=== PATIENT | female | born 1945 | race Caucasian/White ===

== ENCOUNTER → 2016-12-17 | Day surgery (SDC) | payer OTHER ==
[~2016-12-17] MED LIST: ACETAMINOPHEN PO; ADVAIR 250-501 EACH IH; ALBUTEROL MININEB NEB; ANEXSIA 7.5/3251 TA1 PO; ATIVAN PO; ATIVAN2 M1 PO; ATIVAN2 MG PO; B-12 IJ; BACLOFEN10 MG PO; BACLOFEN20 MG PO; CHANTIX; CIPRO PO; COMBIVENT U/D3 ML INH; COPAXONE SQ; FLUCONAZOLE200 MG PO; HORIZANT600 MG PO; LEVAQUIN PO; LIORESAL10 MG PO; LODIPINE PO; LOMOTIL TABLET1 TAB PO; MULTI COMPLETE1 EACH PO; MULTI VITAMIN1 EACH PO; MYSOLINE50 M2 PO; MYSOLINE50 MG PO; NEURONTIN300 MG PO; NEURONTIN600 MG PO; NICOTINE TOP; NYSTATIN5 ML PO; OMNICEF300 M1 PO; PHENERGAN PO; PREDNISONE; PREDNISONE PO; PRILOSEC PO; PRILOSEC20 M1 PO; SIMVASTATIN20 MG PO; SINGULAIR PO; THERAPEUTIC M PO; TYSABRI; TYSABRI IV; ULTRAM PO; VICODIN 5/500 T1 TAB PO; VITAMIN B12 IM; VITAMIN D1000 UNI1 PO; VITAMIN D1000 UNIT PO; VITAMIN D250000 UNIT PO; ZOCOR PO
--- NOTE | ~2016-12-17 | OR ---
Unit #: [id number] #: [id number] Patient: ALBA DERAS [id number] [address] [address] [id number] MR#: [id number] NAME: ALBA DERAS. ROOM: Date of Procedure: 12/17/2016 Admission Date: 12/17/2016 Surgeon: Masoud Montgomery M.D. : 1945 Attending Physician: Masoud Montgomery M.D. Primary Care Physician: Edelmira Merrill M.D. OPERATIVE REPORT JOB NOTE: CC: [facility] PREOPERATIVE DIAGNOSES 1. Back pain. 2. Radiculopathy. 3. Degenerative lumbar disk disease with myelopathy. POSTOPERATIVE DIAGNOSES 1. Back pain. 2. Radiculopathy. 3. Degenerative lumbar disk disease with myelopathy. PROCEDURE PERFORMED Lumbar epidural steroid injection with intravenous sedation and fluoroscopic guidance for needle localization. INDICATIONS FOR PROCEDURE The patient is a 71-year-old female with return of back and bilateral lower extremity pains due to multilevel multifactorial nonsurgical degenerative disk and spine disease. Last injection was done singly in early May. She had resurgence of the pain in about 4 months. Based on history, pathology, and symptomatology, plan is to repeat an epidural steroid injection today. DESCRIPTION OF PROCEDURE The patient was placed in a seated position. Standard monitors were applied. 4 mg of Versed were given for sedation and anxiolysis, which were adequate. Vital signs remained stable. Sterile prep and drape then of the lumbar area was performed. The skin then at the L4-L5 level was localized with 1% lidocaine. After confirming proper positioning with fluoroscopy and radiographic contrast, 80 mg Depo-Medrol and 4 mL of 0.125% bupivacaine were deposited. The patient tolerated the procedure otherwise well and was discharged to recovery room in stable condition. Dictated by... Masoud Montgomery M.D. LHP/burtl TD: 12/18/2016 01:01 JOB #: [id number] Unit #: [id number] #: [id number] Patient: ALBA DERAS OPERATIVE REPORT X Masoud Montgomery MD X PROCEDURE OPERATIVE NOTE
== END | disposition home or self-care (01) ==
LOC: CCSC 09:38
DX: M51.06 Intervertebral disc disorders with myelopathy, lumbar region (principal); M51.16 Intervertebral disc disorders with radiculopathy, lumbar region; K21.9 Gastro-esophageal reflux disease without esophagitis
CPT/HCPCS: J1040; J2250

== ENCOUNTER → 2017-02-10 | Outpatient (CLI) | payer OTHER ==
--- NOTE | ~2017-02-10 | MY11 ---
[facility] A Service of [facility] RADIOLOGY TEXT RESULTS PATIENT: ALBA DERAS LOCATION: [facility] : [birth year] UNIT #: [id number] AGE: [address]: Edelmira Merrill MD SEX: F ORDER DR: [id number] [facility] [address] [facility] [place] [facility]. [place], [place] [address] [id number] O MR#: [id number] Acc #: [id number] NAME: ALBA DERAS : 1945 SEX: F STUDY DATE/TIME: 02/10/2017 11:01 UNIT: [facility] ROOM: STUDY DESCRIPTION: MY Mammogram Screening Dig Ryan Attending Physician: Edelmira Merrill M.D. Referring Physician: Edelmira Merrill M.D. Ordering Physician: Edelmira Merrill M.D. Primary Care Physician: Edelmira Merrill M.D. MEDICAL IMAGING REPORT This report is preliminary unless electronic signature is present EXAM Bilateral digital screening mammogram with CAD 02/10/2017 INDICATIONS 71-year-old female for routine screening. No reported problems and no personal history of breast cancer. Family history positive in a half-sister. History of cyst removal. TECHNIQUE CC and MLO views of the breasts were obtained and reviewed with an approved CAD device. COMPARISON 02/07/2016, 12/27/2014, 12/20/2013. FINDINGS Breast parenchyma is composed of scattered fibroglandular densities. The pattern is unchanged. There is no new dominant nodule, mass, or suspicious cluster of microcalcifications. Probable intramammary node in the upper outer quadrant left breast unchanged. IMPRESSION Benign screening mammogram; 1-year followup recommended. Patients over the age of 40 are entered into a reminder system with target due date for the next mammogram. A result letter will also be sent to the patient. BIRADS: 2 Benign finding. Dictated by... Martin Brunner M.D. [facility] A Service of [facility] RADIOLOGY TEXT RESULTS PATIENT: ALBA DERAS LOCATION: [facility] : 47 UNIT #: [id number] AGE: [address]: Edelmira Merrill MD SEX: F ORDER DR: THIS IS AN ELECTRONICALLY VERIFIED REPORT Martin Brunner M.D. at 02/10/2017 4:59 PM Robyn TD: 02/10/2017 12:09 JOB #: [id number] MEDICAL IMAGING REPORT Page 1 of 1 COPY
== END | disposition home or self-care (01) ==
LOC: CWCC 10:22
DX: Z12.31 Encounter for screening mammogram for malignant neoplasm of breast (principal); Z80.3 Family history of malignant neoplasm of breast
CPT/HCPCS: G0202

== ENCOUNTER 2017-06-24 17:22 | Inpatient (IN) | payer OTHER ==
[~2017-06-24] VITALS: Ht 162.6 cm; Wt 108.9 kg
--- NOTE | ~2017-06-24 | DS ---
Unit #: [id number] #: [id number] Patient: ALBA DERAS [id number] [address] [place], [place] [address] [id number] I MR#: [id number] NAME: ALBA DERAS. ROOM: 217 Age: 71 Sex: F Admission Date: 06/24/2017 : 1945 Discharge Date: 06/30/2017 Attending Physician: Vick Carr Primary Care Physician: Edelmira Merrill M.D. DISCHARGE SUMMARY HISTORY OF PRESENT ILLNESS A 71-year-old lady with multiple sclerosis, coronary artery disease as well as the patient is having shortness of air for approximately 2 days. The patient had progressive worsening, therefore she was admitted to the hospital. No change to her medications. No sick contacts. No improvement with steroids and antibiotics as outpatient. The patient is having cough that was clear, placed on Rocephin and oral steroids and was admitted. The patient had progressive dyspnea, required persistent steroid intake. The patient had no significant improvement for several days; however, over time, the shortness of breath improved gradually. The patient continues to take her normal steroids. The patient had worked with physical therapy, who said the patient was fine and did not require home PT. The patient however did improve with incentive spirometry. Prednisone was changed to oral. She did not require home oxygen. Discharged on 06/30/2017 without much difficulty. DISCHARGE MEDICATIONS Include albuterol neb q.i.d. as needed; prednisone 60 mg x1 day, 50 mg x1 day, 40 mg x1 day, 30 mg x1 day, 20 mg x1 day, 10 mg x1 day; primidone 50 mg a day; Lomotil 2.5 mg as needed for loose stool; Diflucan 200 mg p.o. at bedtime for two days; lorazepam 200 mg p.o. t.i.d. as needed for anxiety; simvastatin 20 mg daily; natalizumab infusion every four weeks; montelukast 10 mg a day; multivitamin one tablet a day; hydrocodone and acetaminophen one tablet p.o. t.i.d. as needed for pain; omeprazole 20 mg daily; baclofen 30 mg tablets p.o. t.i.d.; ergocalciferol 50,000 units daily; vitamin B12 daily; 50,000 units of vitamin D q.week; Omnicef 300 mg p.o. b.i.d.; nicotine patch 21 mg transdermally daily x21 days. DISCHARGE INSTRUCTIONS The patient is to follow up with Ms. Beyer in the office in 2 weeks. The patient is to take regular diet and ambulate as tolerated. DISCHARGE DIAGNOSES 1. Multiple sclerosis. 2. Chronic obstructive pulmonary disease exacerbation. 3. Acute on chronic respiratory failure. Thank you very much. Please page me at [phone] if you have any questions. Dictated by... Truong Carr M.D. Unit #: [id number] #: [id number] Patient: ALBA DERAS/modl TD: 07/02/2017 14:19 JOB #: [id number] DISCHARGE SUMMARY Page 1 of 1 X Vick Carr MD X DISCHARGE SUMMARY
--- NOTE | ~2017-06-24 | CR72 ---
[facility] A Service of [facility] RADIOLOGY TEXT RESULTS PATIENT: ALBA DERAS LOCATION: [facility] : 47 UNIT #: [id number] AGE: [address]: Vick Carr MD SEX: F ORDER DR: [id number] [facility] [address] [facility]. [place], [place] [address] [id number] I MR#: [id number] Acc #: [id number] NAME: ALBA DERAS : 1945 SEX: F STUDY DATE/TIME: 06/25/2017 5:40 UNIT: [facility] ROOM: [facility] STUDY DESCRIPTION: CR Chest Single View Portable Attending Physician: Truong Carr M.D. Ordering Physician: Truong Carr M.D. Primary Care Physician: Edelmira Merrill M.D. MEDICAL IMAGING REPORT This report is preliminary unless electronic signature is present EXAM Single view of the chest dated 06/25/2017 COMPARISON Single view chest dated 06/24/2017. HISTORY Shortness of air, COPD for the last 2 days. FINDINGS Single view of the chest was obtained. Stable cardiomegaly and evidence of old granulomatous disease. Calcified hilar, mediastinal lymph nodes and lung nodules are noted. No superimposed acute cardiopulmonary disease. IMPRESSION 1. No significant interval change. 2. Stable [id number] cardiomegaly/pericardial effusion. 3. Old granulomatous disease. Dictated by... Mery Seals M.D. THIS IS AN ELECTRONICALLY VERIFIED REPORT Mery Seals M.D. at 06/26/2017 2:45 PM CPR/mjs TD: 06/25/2017 12:51 JOB #: [id number] MEDICAL IMAGING REPORT [facility] A Service of [facility] RADIOLOGY TEXT RESULTS PATIENT: ALBA DERAS LOCATION: [facility] : [birth year] UNIT #: [id number] AGE: [address]: Vick Carr MD SEX: F ORDER DR: Page 1 of 1 COPY
--- NOTE | ~2017-06-24 | HP ---
Unit #: [id number] #: [id number] Patient: ALBA DERAS [id number] [address] [place], [place] [address] [id number] I MR#: [id number] NAME: ALBA DERAS. ROOM: 217 Age: 71 Sex: F Admission Date: 06/24/2017 : 1945 Attending Physician: Truong Carr M.D. Primary Care Physician: Edelmira Merrill M.D. HISTORY AND PHYSICAL HISTORY OF PRESENT ILLNESS A 71-year-old lady with a history of MS, coronary artery disease, and asthma. The patient has been having shortness of air for approximately two days. Has a history of progressive shortness of air. This morning patient had no (1) change to, no sick contacts, no improvement with steroids and antibiotics as an outpatient, so patient presented to the emergency room. Patient is having positive clear cough. She was placed on Rocephin and clear steroids, and she is being observed for any sort of deterioration. PAST MEDICAL HISTORY 1. Multiple sclerosis. 2. Coronary artery disease. 3. ND. 4. Hypertension. 5. Hyperlipidemia. 6. Pulmonary embolism. 7. Insomnia. 8. Irritable bowel disease. 9. Left breast biopsy with breast cysts. 10. Right thumb surgery. 11. Degenerative disc disease of the C-spine. 12. Right knee surgery. 13. Carpal tunnel syndrome release. 14. Left thumb tendon release. 15. Collar bone surgery. 16. Anemia of chronic disease. 17. Total abdominal hysterectomy. 18. Cholecystectomy. ALLERGIES Aspirin, penicillin, codeine, Talwin, Terramycin, and Darvon. MEDICATIONS 1. Baclofen 1.5 tablet 3 times daily. 2. Ativan 2 mg p.o. 3 times daily. 3. Simvastatin 20 mg at bedtime. 4. Tysabri (natalizumab) 1 IV every 4 weeks for multiple sclerosis. 5. Mysoline 50 mg at bedtime. 6. Vitamin B12 IV every month. 7. Vitamin D2 at 50,000 units weekly. 8. Lomotil 2.5 mg p.r.n. 9. Multivitamin daily. 10. Prilosec 20 mg daily. Unit #: [id number] #: [id number] Patient: ALBA DERAS 11. Anexsia (hydrocodone and acetaminophen) 7.5/325 tablet every 6 hours as needed. 12. Singulair 10 mg daily. FAMILY HISTORY Mother had COPD. Father had Alzheimer disease. SOCIAL HISTORY Patient is , retired. Smoked 40 plus pack-years half pack per day. No history of alcohol. No history of polysubstance use. No other occupational exposure. REVIEW OF SYSTEMS Negative except as per the History of Present Illness. Patient (2) developing progressive shortness of air. A 12-point review of systems was negative otherwise except as in the History of Present Illness. PHYSICAL EXAMINATION VITAL SIGNS: T-current 98.6, pulse 59, respiratory rate 21, blood pressure 121/41, 95% on 2 liters nasal cannula. CHEST: Decreased breath sounds bilaterally. CARDIOVASCULAR: Regular rate. No gallop. ABDOMEN: Soft, nontender, nondistended. EXTREMITIES: No evidence of edema. ASSESSMENT AND PLAN 1. Chronic obstructive pulmonary disease exacerbation. We are going to continue steroids. 2. Acute on chronic respiratory failure. We are going to continue treatment. 3. Multiple sclerosis. We are going to continue home medications. 4. Irritable bowel disease and degenerative joint disease. Will be observed closely. 1. Dictated by Costa Eid/willie TD: 06/26/2017 22:05 JOB #: [id number] HISTORY AND PHYSICAL Page 1 of 1 X Vick Carr MD X HISTORY AND PHYSICAL
--- NOTE | ~2017-06-24 | EKG ---
PATIENT: ALBA DERAS UNIT #: [id number] Ventricular Rate: 62 BPM Atrial Rate: 62 BPM P-R Interval: 98 ms QRS Duration: 126 ms Q-T Interval: 454 ms QTC Calculation(Bezet): 460 ms P [place]: 63 degrees Calculated R [place]: 82 degrees Calculated T [place]: 0 degrees Diagnosis Line: Sinus rhythm with short FL Diagnosis Line: Right bundle branch block with repolarization Diagnosis Line: abnormality Diagnosis Line: T wave abnormality, consider inferior ischemia Diagnosis Line: Abnormal ECG Diagnosis Line: When compared with ECG of 10-SEP-2014 16:28, Diagnosis Line: Aberrant conduction is no longer Present Diagnosis Line: Non-specific change in ST segment in Inferior Diagnosis Line: leads Diagnosis Line: ST no longer depressed in Anterior leads Diagnosis Line: Inverted T waves have replaced nonspecific T wave Diagnosis Line: abnormality in Anterior leads Diagnosis Line: Confirmed by DYLAN DILLON MD ([id number]) on 06/25/2017 Diagnosis Line: 7:36:46 PM INTERPRETING MD: SANTANA TAN
--- NOTE | ~2017-06-24 | CR72 ---
[facility] A Service of [facility] RADIOLOGY TEXT RESULTS PATIENT: ALBA DERAS LOCATION: [facility] : 47 UNIT #: [id number] AGE: [address]: Vick Carr MD SEX: F ORDER DR: [id number] [facility] [address] [facility] [place], [place] [address] [id number] I MR#: [id number] Acc #: [id number] NAME: ALBA DERAS : 1945 SEX: F STUDY DATE/TIME: 06/27/2017 5:53 UNIT: [facility] ROOM: [facility] STUDY DESCRIPTION: CR Chest Single View Portable Attending Physician: Truong Carr M.D. Ordering Physician: Truong Carr M.D. Primary Care Physician: Edelmira Merrill M.D. MEDICAL IMAGING REPORT This report is preliminary unless electronic signature is present EXAM Portable chest 06/27 INDICATION Shortness of air, COPD. Symptoms for 3 days. COMPARISON 06/25/2017. FINDINGS A portable view of the chest was obtained. The heart is mildly enlarged. The vascularity is normal. There are calcified granulomas in the right lung. The lungs are clear. IMPRESSION Stable cardiomegaly. No active disease. Dictated by... Wesley Madrigal M.D. THIS IS AN ELECTRONICALLY VERIFIED REPORT Wesley Madrigal M.D. at 06/27/2017 1:48 PM CORA/alfreda TD: 06/27/2017 10:42 JOB #: [id number] MEDICAL IMAGING REPORT Page 1 of 1 COPY
--- NOTE | ~2017-06-24 | BMI ---
[facility] Nutrition Therapy DATE: 06/25/17 Patient: ALBA Price BRAEDEN Physician: IDALMIS Address: [address] [place] [address] ROAD Room/Bed: [address] [place] [address], Zip: [place] [address] Admit Date: 06/24/17 Date of : [birth year] Height: 5 4 Weight: 240 108.86 HIGH BMI NOTE: DX: 71 y/o female admitted with COPD exacerbation ANTHROPOMETRICS: Ht: 64", Wt: 108.9 kg, BMI: 41 (stage III obese) DIET: Regular INTERVENTION: Restricted diet, meds/fluids per MD RECOMMENDATIONS: Consider changing diet to healthy heart due to PMH to promote a gradual weight loss towards a healthy BMI range. Respectfully, Francheska Walsh RD, LD Food and Nutritional Services [facility] cc: client file
--- NOTE | ~2017-06-24 | CR72 ---
[facility] A Service of [facility] RADIOLOGY TEXT RESULTS PATIENT: ALBA DERAS LOCATION: [facility] 217-01 : 47 UNIT #: [id number] AGE: [address]: Vick Carr MD SEX: F ORDER DR: [id number] [facility] [address] [facility]. [place], [place] [address] [id number] I MR#: [id number] Acc #: [id number] NAME: ALBA DERAS : 1945 SEX: F STUDY DATE/TIME: 06/24/2017 18:03 UNIT: [facility] ROOM: [facility] STUDY DESCRIPTION: CR Chest Single View Portable Attending Physician: Truong Carr M.D. Ordering Physician: Briana Fontanez M.D. Primary Care Physician: Edelmira Merrill M.D. MEDICAL IMAGING REPORT This report is preliminary unless electronic signature is present EXAM Single view chest. INDICATIONS Shortness of air for 1 day. FINDINGS Single portable AP view of the chest compared to 09/10/2014. The heart is enlarged. Central pulmonary vasculature is within normal limits. No focal consolidation. No pneumothorax. IMPRESSION Stable cardiomegaly. No new findings. Dictated by... Mendoza Rogers M.D. THIS IS AN ELECTRONICALLY VERIFIED REPORT Mendoza Rogers M.D. at 06/26/2017 9:49 AM RPC/kellie TD: 06/25/2017 09:45 JOB #: [id number] MEDICAL IMAGING REPORT Page 1 of 1 COPY
[~2017-06-24 17:22] MED LIST changes: -CHANTIX; -FLUCONAZOLE200 MG PO; -NICOTINE TOP; -OMNICEF300 M1 PO; -PREDNISONE
[2017-06-24 17:56] LABS: POC - CKMB 1.9 ng/mL (0.0-7.9); POC - TROPONIN <0.05 ng/mL (<=0.05)
[2017-06-24 18:06] LABS: BASOPHIL# 0.1 X10e3 (0-0.3); BASOPHIL% 0.7 % (0-2.5); DIFF IND NO; EOSINOPHIL# 0.1 X10e3 (0-0.7); EOSINOPHIL% 0.7 % (0.0-7.0); HEMATOCRIT 39.1 % (35.0-45.0); HEMOGLOBIN 13.1 gm/dL (12.0-16.0); LYMPHOCYTE# 3.8 X10e3 (1.0-3.5); LYMPHOCYTE% 30.7 % (17.0-45.0); MEAN CELL VOLUME 93.6 FL (83-96); MEAN CORPUSCULAR HEMOGLOBIN 31.4 PG (28-34); MEAN CORPUSCULAR HGB CONC 33.6 g/dL (30-36); MEAN PLATELET VOLUME 10.6 FL (6.5-11.5); MONOCYTE# 1.5 X10e3 (0-1.0); MONOCYTE% 12.4 % (3.0-12.0); NEUTROPHIL# 6.8 X10e3 (1.5-7.1); NEUTROPHIL% 55.5 % (40-75); PLATELET COUNT 191 X10e3 (140-420); RED BLOOD COUNT 4.17 X10e (3.90-5.30); WHITE BLOOD COUNT 12.2 X10e3 (4.0-10.5)
[2017-06-24 18:17] LABS: INR 1.1; PARTIAL THROMBOPLASTIN TIME 26.8 SECONDS (23.5-31.3); PROTHROMBIN TIME (PATIENT) 11.4 SECONDS (10.0-11.7)
[2017-06-24 18:28] LABS: INFLUENZA A NEG (NEG); INFLUENZA B NEG (NEG)
[2017-06-24 18:28] LABS: ALBUMIN SERUM 3.7 g/dL (3.5-5.0); BILIRUBIN, DIRECT 0.2 mg/dL (0.0-0.2); BILIRUBIN,INDIRECT 0.8 mg/dL (0.0-0.9); BUN/CREATININE RATIO 12.5; CALCIUM SERUM 8.4 mg/dL (8.4-10.2); CREATININE SERUM 0.8 mg/dL (0.6-1.4); GLOM FILT RATE Estimated 75.3 mL/min (>60); POTASSIUM 3.9 mmol/L (3.5-5.1); PROTEIN TOTAL SERUM 7.1 g/dL (6.0-8.3)
[2017-06-24 19:44] LABS: POC - CKMB 1.2 ng/mL (0.0-7.9); POC - TROPONIN <0.05 ng/mL (<=0.05)
[2017-06-25 05:16] LABS: BASOPHIL% 0.8 % (0-2.5); HEMOGLOBIN 12.2 gm/dL (12.0-16.0); LYMPHOCYTE# 1.2 X10e3 (1.0-3.5); LYMPHOCYTE% 20.8 % (17.0-45.0); MEAN CELL VOLUME 93.1 FL (83-96); MEAN CORPUSCULAR HEMOGLOBIN 31.5 PG (28-34); MEAN CORPUSCULAR HGB CONC 33.9 g/dL (30-36); MONOCYTE# 0.2 X10e3 (0-1.0); MONOCYTE% 2.9 % (3.0-12.0); NEUTROPHIL# 4.3 X10e3 (1.5-7.1); NEUTROPHIL% 75.5 % (40-75); PLATELET COUNT 161 X10e3 (140-420); RED BLOOD COUNT 3.87 X10e (3.90-5.30); RED CELL DISTRIBUTION WIDTH 15.6 % (11.0-15.5)
[2017-06-25 05:45] LABS: DIFF IND NO; WHITE BLOOD COUNT 5.8 X10e3 (4.0-10.5)
[2017-06-25 05:54] LABS: ALBUMIN SERUM 3.2 g/dL (3.5-5.0); ALKALINE PHOSPHATASE 75 U/L (32-92); ALT (SGPT) 8 U/L (10-40); AST (SGOT) 13 U/L (10-42); BILIRUBIN, DIRECT 0.1 mg/dL (0.0-0.2); BILIRUBIN,INDIRECT 0.5 mg/dL (0.0-0.9); BILIRUBIN,TOTAL 0.6 mg/dL (0.2-2.0); BLOOD UREA NITROGEN 12 mg/dL (9-23); CALCIUM SERUM 8.3 mg/dL (8.4-10.2); CARBON DIOXIDE 27 mmol/L (22-31); CHLORIDE 102 mmol/L (100-111); CREATININE SERUM 0.6 mg/dL (0.6-1.4); GLUCOSE FASTING 155 mg/dL (70-110); PHOSPHOROUS 2.9 mg/dL (2.5-4.6); POTASSIUM 4.2 mmol/L (3.5-5.1); PROTEIN TOTAL SERUM 6.2 g/dL (6.0-8.3); SODIUM 137 mmol/L (135-145)
[2017-06-25 06:08] LABS: PROCALCITONIN <0.05 NG/ML
[2017-06-26 05:04] LABS: HEMATOCRIT 35.7 % (35.0-45.0); HEMOGLOBIN 11.9 gm/dL (12.0-16.0); MEAN CELL VOLUME 94.1 FL (83-96); MEAN CORPUSCULAR HEMOGLOBIN 31.4 PG (28-34); MEAN CORPUSCULAR HGB CONC 33.3 g/dL (30-36); MEAN PLATELET VOLUME 9.8 FL (6.5-11.5); RED BLOOD COUNT 3.79 X10e (3.90-5.30); RED CELL DISTRIBUTION WIDTH 15.7 % (11.0-15.5)
[2017-06-26 05:13] LABS: WHITE BLOOD COUNT 11.2 X10e3 (4.0-10.5)
[2017-06-26 06:35] LABS: BUN/CREATININE RATIO 24.28; CALCIUM SERUM 8.7 mg/dL (8.4-10.2); CREATININE SERUM 0.7 mg/dL (0.6-1.4); GLOM FILT RATE Estimated 88.4 mL/min (>60); POTASSIUM 4.2 mmol/L (3.5-5.1)
[2017-06-27 06:10] LABS: HEMATOCRIT 36.5 % (35.0-45.0); HEMOGLOBIN 11.8 gm/dL (12.0-16.0); MEAN CELL VOLUME 94.6 FL (83-96); MEAN CORPUSCULAR HEMOGLOBIN 30.6 PG (28-34); MEAN CORPUSCULAR HGB CONC 32.3 g/dL (30-36); MEAN PLATELET VOLUME 10.4 FL (6.5-11.5); RED BLOOD COUNT 3.86 X10e (3.90-5.30); RED CELL DISTRIBUTION WIDTH 16.1 % (11.0-15.5); WHITE BLOOD COUNT 12.6 X10e3 (4.0-10.5)
[2017-06-28 05:17] LABS: HEMATOCRIT 35.7 % (35.0-45.0); HEMOGLOBIN 11.9 gm/dL (12.0-16.0); LYMPHOCYTE# 1.5 X10e3 (1.0-3.5); LYMPHOCYTE% 13.9 % (17.0-45.0); MEAN CORPUSCULAR HEMOGLOBIN 31.4 PG (28-34); MEAN CORPUSCULAR HGB CONC 33.4 g/dL (30-36); MEAN PLATELET VOLUME 10.1 FL (6.5-11.5); MONOCYTE# 0.9 X10e3 (0-1.0); MONOCYTE% 8.9 % (3.0-12.0); NEUTROPHIL# 8.1 X10e3 (1.5-7.1); NEUTROPHIL% 77.2 % (40-75); PLATELET COUNT 190 X10e3 (140-420); RED CELL DISTRIBUTION WIDTH 16.1 % (11.0-15.5); WHITE BLOOD COUNT 10.5 X10e3 (4.0-10.5)
[2017-06-28 05:19] LABS: DIFF IND NO
[2017-06-30] MEDS ORDERED: CHANTIX (16:19)
[2017-06-30] MEDS ORDERED: ALBUTEROL MININEB NEB (16:20)
[2017-06-30] MEDS ORDERED: PREDNISONE (16:20)
[2017-06-30] MEDS ORDERED: OMNICEF300 M1 PO (16:21)
[2017-06-30] MEDS ORDERED: FLUCONAZOLE200 MG PO (16:21)
[2017-06-30] MEDS ORDERED: NICOTINE TOP (16:22)
== END 2017-06-30 18:12 | disposition home or self-care (01) | DRG 190 ==
LOC: CED 17:22 → CEDOF 20:34 → C2A 20:34 → CEDOF 20:38 → CED 20:38 → CEDOF 06-25 00:39 → C2A 06-25 00:39
PROVIDERS: Emergency Medicine; Internal Medicine Pulmonary Disease
PROC: 05H333Z Insertion of Infusion Device into Right Innominate Vein, Percutaneous Approach (ICD-10-PCS; principal; 2017-06-25)
PROC: B54MZZA Ultrasonography of Right Upper Extremity Veins, Guidance (ICD-10-PCS; 2017-06-25)
DX: J44.1 Chronic obstructive pulmonary disease with (acute) exacerbation (principal); J96.20 Acute and chronic respiratory failure, unspecified whether with hypoxia or hypercapnia; G35 Multiple sclerosis; Z68.41 Body mass index [BMI] 40.0-44.9, adult; E66.01 Morbid (severe) obesity due to excess calories; Z90.710 Acquired absence of both cervix and uterus; Z90.49 Acquired absence of other specified parts of digestive tract; I25.10 Atherosclerotic heart disease of native coronary artery without angina pectoris; J45.909 Unspecified asthma, uncomplicated; I25.2 Old myocardial infarction; I10 Essential (primary) hypertension; E78.5 Hyperlipidemia, unspecified; Z86.711 Personal history of pulmonary embolism; G47.00 Insomnia, unspecified; K58.9 Irritable bowel syndrome, unspecified; M50.30 Other cervical disc degeneration, unspecified cervical region; Z88.0 Allergy status to penicillin; Z88.6 Allergy status to analgesic agent; Z88.5 Allergy status to narcotic agent; Z88.8 Allergy status to other drugs, medicaments and biological substances; F17.210 Nicotine dependence, cigarettes, uncomplicated
CPT/HCPCS: 36415; 71010; 80048; 80076; 82308; 82553; 82947; 83735; 83880; 84100; 84484; 85025; 85027; 85610; 85730; 87040; 87070; 87205; 87633; 87804; 93005; 94010; 94640; 94760; 96365; 96375; 97161; 99285; G8978-GP; G8979-GP; G8980-GP; J0696; J1650; J2920; J2930; J3475